=== PATIENT | female | born 1930 | race Caucasian/White ===

== ENCOUNTER 2017-11-28 10:51 | Inpatient (IN) | payer MEDICARE ==
[~2017-11-28] VITALS: Ht 162.6 cm; Wt 35.4 kg
[2017-11-28] MEDS ORDERED: SODIUM CHLORIDE FLUSH 10ML SYR IVF ONE (11:00)
[2017-11-28 11:16] LABS: MEAN CORPUSCULAR HEMOGLOBIN 29.4 pg (27.0-34.8); MEAN CORPUSCULAR HGB CONC 32.8 g/dL (32.4-35.8); MEAN CORPUSCULAR VOLUME 89.5 fL (80-100); MEAN PLATELET VOLUME 8.4 fL (7.4-10.4); PLATELET COUNT 257 x10^3/uL (130-400); RED BLOOD COUNT 5.46 x10^6/uL (3.82-5.3); RED CELL DISTRIBUTION WIDTH 15.4 % (9.6-15.2)
[2017-11-28 11:24] LABS: INTERNATIONAL NORMALIZED RATIO 1.25 (0.93-1.1); PROTHROMBIN TIME 12.9 Seconds (9.6-11.5)
[2017-11-28 11:28] LABS: ALANINE AMINOTRANSFERASE 26 U/L (12-78); ALBUMIN 2.9 g/dL (3.4-5.0); ANION GAP 8 mmol/L (5-15); CALCIUM 7.7 mg/dL (8.5-10.1); CHLORIDE 100 mmol/L (98-107); CREATININE 1.23 mg/dL (0.55-1.02)
[2017-11-28 11:32] LABS: ALKALINE PHOSPHATASE 57 U/L (45-117); BILIRUBIN,TOTAL 0.4 mg/dL (0.2-1.0); TOTAL PROTEIN 5.6 g/dL (6.4-8.2); TROPONIN I 0.055 ng/mL (0.000-0.045)
[2017-11-28 11:34] LABS: BASOPHILS % (AUTO) 0 % (0-1); EOSINOPHILS % (AUTO) 0 % (1-7); LYMPHOCYTES # (AUTO) 0.15 x10^3/uL (1-3.4); LYMPHOCYTES % (AUTO) 2 % (22-44); MD SCAN; MONOCYTES % (AUTO) 2 % (2-9); NEUTROPHILS # (AUTO) 10.04 x10^3/uL (1.8-6.8); NEUTROPHILS % (AUTO) 97 % (42-75)
[2017-11-28] MEDS ORDERED: SODIUM CHLORIDE 0.9% 1,000 ML IV SCH ×2 (12:10→20:00)
[2017-11-28] MEDS ORDERED: CEFTRIAXONE PMX 1GM/50ML 50 ML IV SCH (12:30)
[2017-11-28] MEDS ORDERED: ACETAMINOPHEN 325 MG TABLET PO PRN (12:30)
[2017-11-28] MEDS ORDERED: POLYETHYLENE GLYCOL 17 GM PACKET PO PRN (12:30)
[2017-11-28] MEDS ORDERED: ONDANSETRON 2MG/ML, 2ML IVPush PRN (12:30)
[2017-11-28] MEDS ORDERED: hydrALAzine 20 MG/ML, 1ML IVPush PRN (12:30)
[2017-11-28] MEDS ORDERED: FUROSEMIDE 20 MG/2 ML IV ONE (13:00)
[2017-11-28] MEDS: CEFTRIAXONE 1,000 MG in SODIUM CHLORIDE 0.9% 50 ML IV SCH (13:30)
[2017-11-28 13:33] VITALS: BP 92/50
[2017-11-28] MEDS ORDERED: ALBUTEROL/IPRATROPIUM 2.5MG/0.5MG, 3 ML ONE (14:17)
[2017-11-28] MEDS ORDERED: SODIUM CHLORIDE 0.9% 500 ML IV ONE (14:30)
[2017-11-28] MEDS: AZITHROMYCIN 500 MG TABLET PO SCH (14:48)
[2017-11-28] MEDS ORDERED: ALBUTEROL/IPRATROPIUM 2.5MG/0.5MG, 3 ML NPPB PRN (16:00)
[2017-11-28] MEDS: ALBUTEROL/IPRATROPIUM 2.5MG/0.5MG, 3 ML NPPB SCH (16:34)
[2017-11-28 16:52] VITALS: BP 88/44
[2017-11-28 17:26] LABS: TROPONIN I 0.061 ng/mL (0.000-0.045)
[2017-11-28 21:24] VITALS: BP 88/46
[2017-11-28 23:39] LABS: TROPONIN I 0.051 ng/mL (0.000-0.045)
[2017-11-29 02:38] VITALS: BP 103/60
[2017-11-29 05:29] LABS: CHLORIDE 104 mmol/L (98-107)
[2017-11-29 05:39] LABS: ALANINE AMINOTRANSFERASE 22 U/L (12-78); ALBUMIN 2.6 g/dL (3.4-5.0); ALKALINE PHOSPHATASE 54 U/L (45-117); ANION GAP 7 mmol/L (5-15); BILIRUBIN,TOTAL 0.4 mg/dL (0.2-1.0); CALCIUM 7.9 mg/dL (8.5-10.1); CHOL/HDL RATIO 4.6; CHOLESTEROL, TOTAL 213 mg/dL (140-239); CREATININE 1.08 mg/dL (0.55-1.02); HDL CHOL % 22 % (28-40); HDL CHOLESTEROL (DIRECT) 46 mg/dL (40-60); LDL CHOLESTEROL,CALCULATED 147 mg/dL (54-169); LDL/HDL RATIO 3.2 (0.5-3.0); TOTAL PROTEIN 5.1 g/dL (6.4-8.2); TRIGLYCERIDES 102 mg/dL (50-200); VLDL CHOLESTEROL 20 mg/dL (0-25)
[2017-11-29 06:10] LABS: BASOPHILS % (AUTO) 0 % (0-1); EOSINOPHILS # (AUTO) 0.04 x10^3/uL (0-0.4); EOSINOPHILS % (AUTO) 1 % (1-7); LYMPHOCYTES # (AUTO) 0.51 x10^3/uL (1-3.4); LYMPHOCYTES % (AUTO) 7 % (22-44); MD NO; MEAN CORPUSCULAR HEMOGLOBIN 29.6 pg (27.0-34.8); MEAN CORPUSCULAR HGB CONC 32.7 g/dL (32.4-35.8); MEAN CORPUSCULAR VOLUME 90.6 fL (80-100); MEAN PLATELET VOLUME 8.9 fL (7.4-10.4); MONOCYTES # (AUTO) 0.59 x10^3/uL (0.2-0.8); MONOCYTES % (AUTO) 9 % (2-9); NEUTROPHILS # (AUTO) 5.84 x10^3/uL (1.8-6.8); NEUTROPHILS % (AUTO) 84 % (42-75); PLATELET COUNT 201 x10^3/uL (130-400); RED BLOOD COUNT 4.83 x10^6/uL (3.82-5.3); RED CELL DISTRIBUTION WIDTH 15.3 % (9.6-15.2)
[2017-11-29] MEDS: ALBUTEROL/IPRATROPIUM 2.5MG/0.5MG, 3 ML NPPB SCH ×4 (07:00→19:13)
[2017-11-29 07:11] VITALS: BP 116/69
[2017-11-29] MEDS: AZITHROMYCIN 500 MG TABLET PO SCH (08:26)
[2017-11-29] MEDS: SODIUM CHLORIDE 0.9% 1,000 ML IV SCH (08:30)
[2017-11-29] MEDS: CEFTRIAXONE 1,000 MG in SODIUM CHLORIDE 0.9% 50 ML IV SCH (12:10)
[2017-11-29] MEDS ORDERED: SODIUM CHLORIDE 0.9% 1,000 ML IV SCH (12:10)
[2017-11-29 14:10] VITALS: BP 87/47
[2017-11-29 20:00] VITALS: BP 120/56
[2017-11-30 02:00] VITALS: BP 105/53
[2017-11-30 05:26] LABS: BASOPHILS % (AUTO) 0 % (0-1); EOSINOPHILS # (AUTO) 0.14 x10^3/uL (0-0.4); EOSINOPHILS % (AUTO) 2 % (1-7); LYMPHOCYTES # (AUTO) 0.61 x10^3/uL (1-3.4); LYMPHOCYTES % (AUTO) 8 % (22-44); MD NO; MEAN CORPUSCULAR HGB CONC 32.4 g/dL (32.4-35.8); MEAN CORPUSCULAR VOLUME 89.6 fL (80-100); MEAN PLATELET VOLUME 8.5 fL (7.4-10.4); MONOCYTES # (AUTO) 0.57 x10^3/uL (0.2-0.8); MONOCYTES % (AUTO) 8 % (2-9); NEUTROPHILS # (AUTO) 6.16 x10^3/uL (1.8-6.8); NEUTROPHILS % (AUTO) 82 % (42-75); PLATELET COUNT 191 x10^3/uL (130-400); RED BLOOD COUNT 4.77 x10^6/uL (3.82-5.3); RED CELL DISTRIBUTION WIDTH 15.7 % (9.6-15.2)
[2017-11-30 05:33] LABS: ANION GAP 5 mmol/L (5-15); CALCIUM 7.7 mg/dL (8.5-10.1); CHLORIDE 107 mmol/L (98-107)
[2017-11-30 05:34] LABS: CREATININE 0.85 mg/dL (0.55-1.02)
[2017-11-30] MEDS: SODIUM CHLORIDE 0.9% 1,000 ML IV SCH (06:30)
[2017-11-30 07:19] VITALS: BP 98/49
[2017-11-30] MEDS: AZITHROMYCIN 500 MG TABLET PO SCH (07:35)
[2017-11-30] MEDS: ALBUTEROL/IPRATROPIUM 2.5MG/0.5MG, 3 ML NPPB SCH ×4 (07:35→19:00)
[2017-11-30] MEDS: CEFTRIAXONE 1,000 MG in SODIUM CHLORIDE 0.9% 50 ML IV SCH (12:07)
[2017-11-30 12:33] VITALS: BP 116/68
[2017-11-30] MEDS ORDERED: LIDOCAINE 1%, 20ML ONE (16:12)
[2017-11-30 20:00] VITALS: BP 97/49
[2017-12-01] MEDS: SODIUM CHLORIDE 0.9% 1,000 ML IV SCH (01:45)
[2017-12-01 01:59] VITALS: BP 98/53
[2017-12-01 06:16] LABS: BASOPHILS % (AUTO) 0 % (0-1); EOSINOPHILS # (AUTO) 0.17 x10^3/uL (0-0.4); EOSINOPHILS % (AUTO) 3 % (1-7); LYMPHOCYTES # (AUTO) 0.46 x10^3/uL (1-3.4); LYMPHOCYTES % (AUTO) 8 % (22-44); MD NO; MEAN CORPUSCULAR HGB CONC 32.4 g/dL (32.4-35.8); MEAN CORPUSCULAR VOLUME 89.4 fL (80-100); MEAN PLATELET VOLUME 8.6 fL (7.4-10.4); MONOCYTES # (AUTO) 0.39 x10^3/uL (0.2-0.8); MONOCYTES % (AUTO) 7 % (2-9); NEUTROPHILS # (AUTO) 4.96 x10^3/uL (1.8-6.8); NEUTROPHILS % (AUTO) 83 % (42-75); PLATELET COUNT 163 x10^3/uL (130-400); RED BLOOD COUNT 4.78 x10^6/uL (3.82-5.3); RED CELL DISTRIBUTION WIDTH 15.7 % (9.6-15.2)
[2017-12-01 06:26] LABS: CALCIUM 7.8 mg/dL (8.5-10.1); CHLORIDE 106 mmol/L (98-107); CREATININE 0.54 mg/dL (0.55-1.02)
[2017-12-01 06:41] LABS: ANION GAP 3 mmol/L (5-15)
[2017-12-01 07:26] VITALS: BP 105/56
[2017-12-01] MEDS: ALBUTEROL/IPRATROPIUM 2.5MG/0.5MG, 3 ML NPPB SCH (07:30)
[2017-12-01] MEDS: AZITHROMYCIN 500 MG TABLET PO SCH (08:21)
[2017-12-01] MEDS ORDERED: AZIT500T5 PO (10:27)
[2017-12-01] MEDS ORDERED: CEFD300C37 PO (10:27)
[2017-12-01 12:32] VITALS: BP 106/61
[2017-12-01] MEDS: CEFTRIAXONE 1,000 MG in SODIUM CHLORIDE 0.9% 50 ML IV SCH (13:30)
== END 2017-12-01 15:39 | DRG 193 ==
LOC: EDSEX 10:51 → ED 11:19 → EDIP 11:52 → 4WST 13:05
PROVIDERS: ADMIT Hospitalist; ATTEND Hospitalist
PROC: 0W993ZZ Drainage of Right Pleural Cavity, Percutaneous Approach (ICD-10-PCS; principal; 2017-11-30)
DX: J18.9 Pneumonia, unspecified organism (principal); E43 Unspecified severe protein-calorie malnutrition; N17.0 Acute kidney failure with tubular necrosis; J44.0 Chronic obstructive pulmonary disease with (acute) lower respiratory infection; J44.1 Chronic obstructive pulmonary disease with (acute) exacerbation; Z68.1 Body mass index [BMI] 19.9 or less, adult; J90 Pleural effusion, not elsewhere classified; I50.9 Heart failure, unspecified; R09.02 Hypoxemia; Z66 Do not resuscitate; Z87.891 Personal history of nicotine dependence; Z90.710 Acquired absence of both cervix and uterus
CPT/HCPCS: 32555; 36415; 71045; 80048; 80053; 80061; 83735; 83880; 84100; 84484; 85025; 85610; 85730; 93005; 93306; 94640; 99291; J0696; J3490; J7620; J7030; J7040